=== PATIENT | male | born 1950 | race Caucasian/White ===

== ENCOUNTER 2019-11-21 09:56 | Inpatient (IN) | payer MEDICARE ==
[2019-11-21 10:18] LABS: #Basophils 0.1 thou/uL (0.0-0.2); #Eosinphils 0.3 thou/uL (0.0-0.7); #Lymphocytes 2.2 thou/uL (1.20-3.40); #Monocytes 0.6 thou/uL (0.11-0.59); #Neutrophils 3.9 thou/uL (1.40-6.50); %Basophils 0.8 % (0.0-1.0); %Eosinophils 3.8 % (0.0-10.0); %Lymphocytes 31.4 % (21.0-51.0); %Monocytes 8.7 % (0.0-10.0); %Neutrophils 55.4 % (42.0-75.0); Hemoglobin 16.8 g/dL (14.0-18.0); Mean Corpuscular HGB CONC 34.4 g/dL (32.0-36.0); Mean Corpuscular Hemoglobin 33.2 pg (27.0-31.0); Mean Corpuscular Volume 96.7 fL (78.0-98.0); Mean Platelet Volume 9.3 fL (7.4-10.4); Platelet Count 169 thou/uL (130-400); RBC Distribution Width 12.6 % (11.5-14.5); Red Blood Cell (RBC) Count 5.06 mill/uL (4.70-6.10); White Blood Cell (WBC) Count 7.1 thou/uL (4.8-10.8)
[2019-11-21] MEDS ORDERED: Nitroglycerin 0.4 MG TAB 1 EACH ONE (10:24)
--- NOTE | 2019-11-21 10:32 | RAD ---
Portable frontal chest radiograph: 11/21/2019 COMPARISON: None HISTORY: Chest pain FINDINGS: Lungs are clear. Heart and mediastinal contours appear within normal limits. IMPRESSION: No acute findings.
[2019-11-21 10:52] LABS: ALT (SGPT) 120 U/L (8-55); AST (SGOT) 91 U/L (5-34); Albumin 4.3 g/dL (3.4-4.8); Alkaline Phosphatase 72 U/L (40-110); Anion Gap 11 mmol/L (10-20); BUN (Urea Nitrogen) 17 mg/dL (8.4-25.7); Bilirubin, Total 1.3 mg/dL (0.2-1.2); CK (CPK) 83 U/L (30-200); Calc. Creatinine Clearance 0 mL/min (70-130); Carbon Dioxide 30 mmol/L (23-31); Chloride 102 mmol/L (98-107); Estimated GFR-MDRD 66; Glucose 126 mg/dL (80-115); Lipase 24 U/L (8-78); Potassium 4.7 mmol/L (3.5-5.1); Protein, Total 7.3 g/dL (5.8-8.1); Sodium 138 mmol/L (136-145)
[2019-11-21] MEDS ORDERED: Ondansetron ODT 4 MG TAB PO PRN (13:16)
--- NOTE | 2019-11-21 13:18 | PDOC.HHP ---
Hospitalist HPI - History of Present Illness Chest discomfort History of Present Illness: Mr. Pepe is 69y/o male with h/o chronic bradycardia & hypertension pw substernal chest pain started this morning. Patient described the symptom as a discomfort of 1/10, non radiating, improves when he turns his head to the R associated with L hand numbness & lightheadedness. He took 2 (325mg) aspirin and unclear if the discomfort relieved. He denies any significant SOB. He was concerned as he had a stress test ~5 weeks ago and was told of abnormality "in the R heart" thus the presentation. He is currently symptom free. He received nitroglycerin in the ER, and unable to tell if helped or did not. He has a remote history of palpitation, 5 years ago and wore holter monitoring without any findings. Hospitalist ROS - Review of Systems Cardiovascular: reports: chest pain All other systems reviewed; all pertinent +/- noted in HPI/Subj - Medication Medications: Reviewed. Hospitalist History - Past Medical History Cardiac: reports: HTN Hepatobiliary: reports: Other (Elevated liver enzyme) - Past Surgical History Past Surgical History: reports: Tonsillectomy, Other (Leg cyst removal) - Family History Family History: reports: hypertension - Social History Smoking Status: Never smoker Alcohol: reports: Rare Drugs: reports: none Living Situation: With Family Activity level: independent ambulation - Exam General Appearance: NAD, awake alert Eye: PERRL, anicteric sclera ENT: normocephalic atraumatic Neck: supple, symmetric, no JVD Heart: RRR, no murmur, no gallops Respiratory: CTAB, no wheezes, no tachypnea, normal percussion Gastrointestinal: soft, non-tender Extremities: no cyanosis, no clubbing Skin: normal turgor, no lesions Neurological: cranial nerve grossly intact, normal sensation to touch Musculoskeletal: normal tone, normal strength, no muscle wasting Psychiatric: normal affect, normal behavior, A&O x 3 Hospitalist Results - Labs Result Diagrams: 11/21/19 10:02 11/21/19 10:27 Lab results: WBC 7.1 thou/uL (4.8-10.8) 11/21/19 10:02 Hgb 16.8 g/dL (14.0-18.0) 11/21/19 10:02 Hct 49.0 % (42.0-52.0) 11/21/19 10:02 MCV 96.7 fL (78.0-98.0) 11/21/19 10:02 Plt Count 169 thou/uL (130-400) 11/21/19 10:02 Neutrophils % 55.4 % (42.0-75.0) 11/21/19 10:02 Sodium 138 mmol/L (136-145) 11/21/19 10:27 Potassium 4.7 mmol/L (3.5-5.1) 11/21/19 10:27 Chloride 102 mmol/L (98-107) 11/21/19 10:27 Carbon Dioxide 30 mmol/L (23-31) 11/21/19 10:27 BUN 17 mg/dL (8.4-25.7) 11/21/19 10:27 Creatinine 1.10 mg/dL (0.7-1.3) 11/21/19 10:27 Glucose 126 mg/dL (80-115) H 11/21/19 10:27 Calcium 10.0 mg/dL (7.8-10.44) 11/21/19 10:27 Total Bilirubin 1.3 mg/dL (0.2-1.2) H 11/21/19 10:27 AST 91 U/L (5-34) H 11/21/19 10:27 ALT 120 U/L (8-55) H 11/21/19 10:27 Alkaline Phosphatase 72 U/L (40-110) 11/21/19 10:27 Creatine Kinase 83 U/L (30-200) 11/21/19 10:27 Troponin I 0.026 ng/mL (< 0.028) 11/21/19 10:02 Serum Total Protein 7.3 g/dL (5.8-8.1) 11/21/19 10:27 Albumin 4.3 g/dL (3.4-4.8) 11/21/19 10:27 Lipase 24 U/L (8-78) 11/21/19 10:27 - EKG Interpretation EKG: Reviewed Hospitalist H&P A/P - Plan Plan: Mr Pepe is 69 y/o male pw chest pain. #Chest pain- atypical. R/o ACS. EKG with no acute ischemic changes. Non specific changes. Recent "abnormal" stress test. -troponin X1 neg, will trend -Aspirin. Check lipid panel. -hold statin due to transaminitis. -hammer runner consulted by ER team. #Sinus bradycardia- asymptomatic. -monitor closely -avoid av matilda blocking agent. #Transaminitis- chronic, for at least 50 yrs. possibly ESPINO -will need outpatient imaging and work up #Hypertension- resume antihypertensive once loaded to EHR #Obesity- weight loss advised DVT ppx- SCD Patient is full code. His spouse is NOK
[2019-11-21 13:21] LABS: Troponin I 0.011 ng/mL (< 0.028)
[2019-11-21] MEDS ORDERED: Ondansetron ODT 4 MG TAB SL PRN (14:42)
[2019-11-21] MEDS ORDERED: Ondansetron PF 4 MG/2 ML Vial IVP PRN (14:42)
[2019-11-21] MEDS ORDERED: Acetaminophen 325 MG TAB PO PRN (14:42)
[2019-11-21 14:50] VITALS: BMI 35.8
[2019-11-21 16:10] LABS: Troponin I 0.032 ng/mL (< 0.028)
[2019-11-21] MEDS ORDERED: Atorvastatin Calcium 40 MG TAB PO SCH (17:15)
--- NOTE | 2019-11-21 17:18 | CON ---
DATE OF CONSULTATION: HISTORY OF PRESENT ILLNESS: The patient is a 69-year-old gentleman, who presents for evaluation of chest discomfort. The patient has previous history of hypertension. He recently underwent a PET scan, which revealed him to have evidence of ischemia. The patient was with evidence of possible eschar in the inferior wall. The patient states that he this morning he developed right-sided chest discomfort. This discomfort seemed to be worse when he took a deep breath. The patient received nitroglycerin with resolution of his chest pain. PAST MEDICAL HISTORY: 1. Hypertension. 2. Sleep apnea. 3. Gout. PAST SURGICAL HISTORY: Tonsillectomy and fatty tumor removal. FAMILY HISTORY: No strong family history of heart disease. SOCIAL HISTORY: Nonsmoker. MEDICATIONS: See nursing list. ALLERGIES: 1. MERCURY. 2. SULINDAC. REVIEW OF SYSTEMS: Ten-point review of systems is otherwise unremarkable. PHYSICAL EXAMINATION: GENERAL: Well-developed gentleman, in no acute distress. VITAL SIGNS: Blood pressure 143/65. NECK: No jugular venous distention. LUNGS: Clear to auscultation. HEART: Regular rate and rhythm. Normal S1 and S2. No murmurs. ABDOMEN: Nondistended. EXTREMITIES: Show no edema. VASCULAR: Radial pulses 2+. LABORATORY RESULTS: Sodium 138, potassium 4.7, chloride 102, bicarbonate 30, BUN 17, creatinine 1.1, glucose 126. White blood cell count 7.1, hemoglobin 16.8, hematocrit 48.0, platelets 169. EKG revealed normal sinus rhythm, nonspecific ST abnormality. IMPRESSION: 1. Chest pain with some features suggestive of ischemic heart disease. 2. Abnormal stress test. 3. Hypertension. 4. Obesity. This gentleman presents with chest pain with some features suggestive of angina. He had evidence of scar on his recent stress testing. The patient will be admitted and placed on medical therapy. He may need to undergo an invasive evaluation during this hospitalization. We will follow this patient with you through his hospitalization. Job ID: [id number] [facility]
[2019-11-21] MEDS: Nitroglycerin 2% Ointment 1 INCH/1 GM Packet TOP SCH ×2 (17:21→23:48)
[2019-11-21] MEDS: Metoprolol Tartrate 25 MG TAB PO SCH (21:14)
[2019-11-22] MEDS ORDERED: Metamucil PACK PO PRN (03:46)
[2019-11-22] MEDS: Nitroglycerin 2% Ointment 1 INCH/1 GM Packet TOP SCH ×3 (05:58→18:35)
[2019-11-22] MEDS: Aspirin 81 mg Enteric Coated Tablet PO SCH (10:10)
[2019-11-22] MEDS: Metoprolol Tartrate 25 MG TAB PO SCH (14:45)
--- NOTE | 2019-11-22 16:59 | PDOC.HOSPP ---
- Subjective Encounter Date: 11/22/19 Encounter Time: 17:00 Subjective: f/u for angina with plans for heart cath 11/23/19. Receiving ASA/Lipitor. - Objective Vital Signs & Weight: Vital Signs (12 hours) Temp Pulse Resp BP Pulse Ox 11/22/19 15:43 98.4 F 62 20 118/56 L 96 11/22/19 11:50 97.9 F 58 L 16 136/62 98 11/22/19 07:22 98.1 F 54 L 16 117/56 L 94 L Weight Weight 235 lb 8 oz I&O: 11/21/19 11/22/19 11/23/19 06:59 06:59 06:59 Intake Total 1880 Output Total 1265 Balance 615 Result Diagrams: 11/21/19 10:02 11/21/19 10:27 Additional Labs: Laboratory Tests 11/21/19 11/21/19 11/21/19 10:02 10:27 12:47 Total Bilirubin 1.3 H AST 91 H ALT 120 H Troponin I 0.026 0.011 11/21/19 15:19 Total Bilirubin AST ALT Troponin I 0.032 H Radiology Reviewed by me: Yes (PCXR - no infiltrates) EKG Reviewed by me: Yes (Tele - SR) Hospitalist ROS - Medication Medications: Active Medications Generic Name Dose Route Start Last Admin Trade Name Freq PRN Reason Stop Dose Admin Aspirin 81 mg 11/22/19 09:00 11/22/19 10:10 Ecotrin PO 81 mg DAILY ZAKIYA Administration Nitroglycerin 1 inch 11/21/19 18:00 11/22/19 14:45 Nitro-Bid 2% Ointment TOP 1 inch Q6HR ZAKIYA Administration Psyllium Hydrophilic Mucilloid 1 pk 11/22/19 03:46 11/22/19 10:10 Metamucil PO 1 pk DAILYPRN PRN Administration CONSTIPATION - Exam General Appearance: NAD, awake alert Eye: PERRL, anicteric sclera ENT: normocephalic atraumatic, no oropharyngeal lesions Neck: supple, symmetric, no JVD, no thyromegaly Heart: RRR, no murmur, no gallops, no rubs, normal peripheral pulses Respiratory: CTAB, no wheezes, no rales, no ronchi, normal chest expansion Gastrointestinal: soft, non-tender, non-distended, normal bowel sounds Extremities: no cyanosis, no clubbing, no edema Skin: normal turgor, no lesions Neurological: cranial nerve grossly intact, no new deficit Musculoskeletal: normal tone, normal strength, no muscle wasting Psychiatric: normal affect, A&O x 3 Hosp A/P (1) Chest pain Code(s): R07.9 - CHEST PAIN, UNSPECIFIED Status: Acute Plan: Plan for heart cath in am 11/23/19 (2) HTN (hypertension) Code(s): I10 - ESSENTIAL (PRIMARY) HYPERTENSION Status: Chronic Qualifiers: Hypertension type: essential hypertension Qualified Code(s): I10 - Essential (primary) hypertension Plan: Resume home BP regimen and monitor clinical response (3) Transaminitis Code(s): R74.0 - NONSPEC ELEV OF LEVELS OF TRANSAMNS & LACTIC ACID DEHYDRGNSE Status: Chronic Plan: ? etiology, check Hep A/B/C panel in am, repeat LFT's in am (4) Sinus bradycardia Code(s): R00.1 - BRADYCARDIA, UNSPECIFIED Status: Chronic Plan: Stable currently, continue telemetry monitoring - Plan plan discussed w/ family, out of bed/ambulate, DVT proph w/SCDs Stable currently Continue ASA daily Plan for heart cath in am AM lab: CMP, Hep A/B/C
[2019-11-22] MEDS ORDERED: Azelastine 137 MCG/Spray 30 ML NS PRN (19:55)
[2019-11-22] MEDS ORDERED: Atorvastatin Calcium 40 MG TAB PO SCH (21:00)
[2019-11-22] MEDS ORDERED: (Arginine [L-Arginine] 500 MG) PO SCH (21:00)
[2019-11-23] MEDS: Nitroglycerin 2% Ointment 1 INCH/1 GM Packet TOP SCH ×2 (01:06→06:03)
[2019-11-23] MEDS ORDERED: Lorazepam 0.5 MG TAB PO SCH (02:00)
[2019-11-23] MEDS: Aspirin 81 mg Enteric Coated Tablet PO SCH (05:51)
[2019-11-23 05:52] LABS: ALT (SGPT) 95 U/L (8-55); AST (SGOT) 66 U/L (5-34); Albumin 3.9 g/dL (3.4-4.8); Alkaline Phosphatase 65 U/L (40-110); Anion Gap 12 mmol/L (10-20); BUN (Urea Nitrogen) 18 mg/dL (8.4-25.7); Bilirubin, Total 1.1 mg/dL (0.2-1.2); Calc. Creatinine Clearance 95 mL/min (70-130); Calcium 9.3 mg/dL (7.8-10.44); Carbon Dioxide 28 mmol/L (23-31); Chloride 104 mmol/L (98-107); Estimated GFR-MDRD 67; Globulin 2.7 g/dL (2.4-3.5); Glucose 124 mg/dL (80-115); Potassium 4.1 mmol/L (3.5-5.1); Protein, Total 6.6 g/dL (5.8-8.1); Sodium 140 mmol/L (136-145)
[2019-11-23 06:01] LABS: HBCM Index 0.05 S/CO (0-0.79); HBSAg Index 0.13 S/CO (0-0.99); Hep A IgM AB Non-Reactive (NonReactive); Hep B Surf Ag Non-Reactive S/CO (NonReactive); Hep C IgG Ab Non-Reactive (NonReactive); Hep C Index 0.14 S/CO (0-0.79); Hepatitis B Core IgM Abs Non-Reactive (NonReactive)
[2019-11-23] MEDS ORDERED: Nitroglycerin 100MG/250ML BOT 250 ML ONE (08:05)
[2019-11-23] MEDS ORDERED: Lidocaine 1% (PF) 30 ML VIAL ONE (08:05)
[2019-11-23] MEDS ORDERED: Heparin 10,000 UNITS/1 ML VIAL ONE (08:05)
[2019-11-23] MEDS ORDERED: Heparin (Artline) 1,000 ML ONE (08:05)
[2019-11-23] MEDS ORDERED: Verapamil 5 MG/2 ML VIAL ONE (08:05)
--- NOTE | 2019-11-23 08:50 | PRG ---
DATE OF SERVICE: Mr. Pepe is doing well today. He did visit with Mr. Pepe about his current symptoms. He did have a chest pain noted. He is very concerned about underlying coronary artery disease. He does have a previous history of abnormal stress study with ischemia to the inferior wall. I discussed risks and benefits of proceeding coronary angiography with medical therapy. He would like to proceed with coronary angiography. I discussed procedure in full detail with Mr. Pepe. Risks included not limited to the following . All questions were answered given the above. The patient agreed to proceed with the above procedure. There were no contraindication to drug-coated stent placement if needed. Job ID: [id number]
[2019-11-23] MEDS ORDERED: Allopurinol 300 MG TAB PO SCH (09:00)
[2019-11-23] MEDS ORDERED: Losartan/Hydrochlorothiazide 100 mg/25 mg Tablet PO SCH (09:00)
[2019-11-23] MEDS ORDERED: Metamucil PACK PO SCH (09:00)
[2019-11-23] MEDS ORDERED: Fentanyl 100 MCG/2 ML VIAL ONE (09:02)
[2019-11-23] MEDS ORDERED: Midazolam HCl 2 mg/2 ml Vial ONE (09:02)
[2019-11-23] MEDS ORDERED: Acetaminophen/Codeine 30-300mg Tablet PO PRN ×2 (09:36)
[2019-11-23] MEDS ORDERED: Nitroglycerin 0.4 MG TAB (25 Tab Bottle) SL PRN (09:36)
[2019-11-23] MEDS ORDERED: Sodium Chloride 0.9% 200 ML IV PRN (09:36)
[2019-11-23] MEDS ORDERED: Sodium Chloride 0.9% 1,000 ML IV SCH (09:45)
[2019-11-23 12:00] VITALS: TEMP 97.7
[2019-11-23 13:54] VITALS: BP 127/62
--- NOTE | 2019-11-23 14:24 | DIS ---
DATE OF ADMISSION: 11/21/2019 DATE OF DISCHARGE: 11/23/2019 DISCHARGE DIAGNOSES: 1. Chest pain. 2. Coronary artery disease, minimal medical management. 3. Hypertension, stable. 4. Hyperlipidemia. 5. Transaminitis, nonspecific. 6. Sinus bradycardia, stable. CONSULTATIONS: Dr. Bess and Dr. Kaufman with Cardiology Service. PERTINENT LABORATORY AND X-RAY FINDINGS: Total bilirubin ranged between 1.1 to 1.3. AST ranged between 66 to 91, ALT ranged between 95 to 120. Troponin I ranged between 0.011 to 0.032. Lipase 24. CBC within normal limits. Hepatitis A, B, and C panel nonreactive on 11/23/2019. Portable chest x-ray dated 11/21/2019, showed no acute cardiopulmonary process. Cardiac catheterization dated 11/21/2019, showed minimal coronary artery disease. Please see dictated report for full details. HOSPITAL COURSE: The patient was observed on the telemetry unit after initially presenting with chest pain. Serial cardiac biomarkers were essentially negative and telemetry monitoring showed no evidence of acute arrhythmia or dysrhythmia. The patient was evaluated by the Cardiology Service with recommendations for cardiac catheterization, undergoing the procedure on 11/23/2019, showing minimal coronary artery disease with preserved ejection fraction. Recommendations are for general medical management including the addition of Lipitor 80 mg daily. I have examined the patient at the time of discharge and discussed followup instructions. The patient overall clinically stable and ready for discharge on 11/23/2019. DISCHARGE MEDICATIONS: 1. Allopurinol 300 mg p.o. daily. 2. Arginine 500 mg p.o. b.i.d. 3. Azelastine one spray in each naris b.i.d. p.r.n. 4. Zyrtec 10 mg p.o. daily. 5. Fluticasone one spray in each naris daily. 6. Losartan/hydrochlorothiazide 100/25 mg 1 tablet p.o. daily. 7. Enteric-coated aspirin 81 mg p.o. daily. 8. Lipitor 80 mg p.o. at bedtime. FOLLOWUP: The patient may follow up with Dr. Jeremie Langford within 7 to 10 days of discharge. The patient will follow up with Dr. Jose Kaufman and to call his office for appointment, time, and date. CONDITION ON DISCHARGE: Stable. ACTIVITY: Ad-kirsty. DIET: Heart healthy. CODE STATUS: Full. DISPOSITION: To home on 11/23/2019. Job ID: [id number]
== END 2019-11-23 14:37 | disposition home or self-care (01) | DRG 287 ==
LOC: ERS 09:56 → 2SW 14:34 → OBSVTOIN 14:34
PROVIDERS: ADMIT Hospitalist; ATTEND Hospitalist
PROC: B2111ZZ Fluoroscopy of Multiple Coronary Arteries using Low Osmolar Contrast (ICD-10-PCS; principal; 2019-11-23)
DX: I25.119 Atherosclerotic heart disease of native coronary artery with unspecified angina pectoris (principal); I10 Essential (primary) hypertension; R00.1 Bradycardia, unspecified; R74.0 Nonspecific elevation of levels of transaminase and lactic acid dehydrogenase [LDH]; G47.30 Sleep apnea, unspecified; M10.9 Gout, unspecified; E66.9 Obesity, unspecified; Z68.35 Body mass index [BMI] 35.0-35.9, adult; Z88.8 Allergy status to other drugs, medicaments and biological substances; Z79.899 Other long term (current) drug therapy
CPT/HCPCS: 36415; 71045; 80053; 80074; 82550; 83690; 84484; 85025; 93005; 93454; 94760; 99152; 99153; C1769; J1644; J2001; J2250; J3010